=== PATIENT | male | born 2000 | race Caucasian/White ===

== ENCOUNTER 2024-03-10 15:13 | Outpatient (CLI) | payer BC | END 2024-03-10 15:14 | disposition home or self-care (01) | LOC: CSHMRI 15:13 | PROVIDERS: ATTEND Orthopaedic Surgery Hand Surgery | DX: S62.035K Nondisplaced fracture of proximal third of navicular [scaphoid] bone of left wrist, subsequent encounter for fracture with nonunion (principal); S63.8X2D Sprain of other part of left wrist and hand, subsequent encounter; M67.442 Ganglion, left hand ==

== ENCOUNTER 2024-06-28 15:38 | Outpatient (CLI) | payer BC | END 2024-06-28 15:39 | disposition home or self-care (01) | LOC: CSHCT 15:38 | PROVIDERS: ATTEND Orthopaedic Surgery Hand Surgery | DX: S62.035K Nondisplaced fracture of proximal third of navicular [scaphoid] bone of left wrist, subsequent encounter for fracture with nonunion (principal); T84.220A Displacement of internal fixation device of bones of hand and fingers, initial encounter ==